=== PATIENT | male | born 1945 | race Caucasian/White ===

== ENCOUNTER → 2021-01-23 13:55 | Outpatient (BNVA) | payer MEDICARE, BC, SELFPAY | PROVIDERS: PCP Internal Medicine; Visit Provider Urology | DX: R97.20 Elevated prostate specific antigen [PSA] (principal); N32.0 Bladder-neck obstruction; R33.9 Retention of urine, unspecified; R35.1 Nocturia; Z87.440 Personal history of urinary (tract) infections | CPT/HCPCS: 81002; 99202 ==